=== PATIENT | male | born 1955 | race Caucasian/White ===

== ENCOUNTER 2019-03-10 20:12 | Emergency (ER) | payer OTHER ==
--- NOTE | 2019-03-10 20:15 | ER Report ---
History and Physical Time Seen By MD: 20:14 HPI/ROS CHIEF COMPLAINT: Coughing up blood HISTORY OF PRESENT ILLNESS: 63-year-old male nonsmoker presents ambulatory the ER with illness for 3-4 days. He's had a productive cough which is now pink f rothy sputum. He notes occasional small clots. He said some intermittent fevers. He denies wrist or exposure to tuberculosis. Patient is currently homeless . [facility] was [facility] [place], but he has no money her transportation. REVIEW OF SYSTEMS: Respiratory: As above Cardiovascular: No chest pain, no palpitations. Gastrointestinal: No vomiting, no abdominal pain. Musculoskeletal: No back pain. Allergies: Coded Allergies: No Known Drug Allergies (Unverified , 03/10/19) Home Meds Active Scripts Clotrimazole/Betamethasone Dip (LOTRISONE CREAM) 15 Gm Cream..g., 1 G TP BID PRN for affected areas, #30 Prov:MARCUSMARK Miller DO 03/10/19 Amoxicillin (AMOXICILLIN) 875 Mg Tablet, 1 TAB PO Q12H for infection, #10 TAB Prov:MARK VELAZQUEZ DO 03/10/19 Reported Medications Aspirin (ASPIR 81) 81 Mg Tablet.dr, 81 MG PO QDAY, TAB 03/10/19 Reviewed Nurses Notes: Yes Old Medical Records Reviewed: Yes Constitutional Vital Sign - Last 24 Hours 03/10/19 03/10/19 03/10/19 03/10/19 20:19 20:20 20:30 20:42 Temp 98.0 Pulse 106 99 Resp 18 B/P (MAP) 133/94 (107) 133/94 142/93 (109) Pulse Ox 99 97 O2 Delivery Room Air 03/10/19 03/10/19 03/10/19 03/10/19 21:00 21:12 21:30 21:42 Pulse 97 97 B/P (MAP) 152/96 (114) 148/95 (112) Pulse Ox 87 93 Physical Exam General Appearance: The patient is alert, has no immediate need for airway prote ction and no current signs of toxicity. Vital signs stable, afebrile, pulse ox normal HEENT: Pupils equal and round no injection. Pharynx with mild erythema Respiratory: Chest is non tender, lungs are clear to auscultation. No wheezing or rails Cardiac: regular rate and rhythm Gastrointestinal: Abdomen is soft and non tender, no masses, bowel sounds normal. Musculoskeletal: Neck: Neck is supple and non tender. Extremities have full range of motion and are non tender. Skin: No rashes or lesions. Examination of the buttocks crease reveals gross Tinea cruris DIFFERENTIAL DIAGNOSIS: After history and physical exam differential diagnosis was considered for hemoptysis, TB, pulmonary embolism, acute bronchitis, congestive heart failure, nose bleed, dental bleeding Medical Decision Making Data Points Result Diagram: 03/10/19210303/10/192103 Laboratory Hematology Test 03/10/19 21:04 Red Blood Count 5.92 M/uL (4.00-5.60) Mean Corpuscular Volume 85.6 fL (80.0-96.0) Mean Corpuscular Hemoglobin 29.0 pg (26.0-33.0) Mean Corpuscular Hemoglobin Concent 33.9 g/dL (32.0-36.0) Red Cell Distribution Width 13.8 % (11.5-14.5) Mean Platelet Volume 8.1 fL (7.2-11.1) Neutrophils (%) (Auto) 71.5 % (39.4-72.5) Lymphocytes (%) (Auto) 18.3 % (17.6-49.6) Monocytes (%) (Auto) 7.4 % (4.1-12.4) Eosinophils (%) (Auto) 1.1 % (0.4-6.7) Basophils (%) (Auto) 1.7 % (0.3-1.4) Nucleated RBC Relative Count (auto) 0.0 /100WBC Neutrophils # (Auto) 8.3 K/uL (2.0-7.4) Lymphocytes # (Auto) 2.1 K/uL (1.3-3.6) Monocytes # (Auto) 0.9 K/uL (0.3-1.0) Eosinophils # (Auto) 0.1 K/uL (0.0-0.5) Basophils # (Auto) 0.2 K/uL (0.0-0.1) Nucleated RBC Absolute Count (auto) 0.00 K/uL Prothrombin Time 12.6 seconds (12.0-14.4) Prothromb Time International Ratio 0.95 Activated Partial Thromboplast Time 28 seconds (23-35) Sodium Level 136 mmol/L (137-145) Potassium Level 3.7 mmol/L (3.5-5.0) Chloride Level 102 mmol/L (98-107) Carbon Dioxide Level 24 mmol/L (22-30) Blood Urea Nitrogen 26 mg/dl (9-21) Creatinine 1.00 mg/dl (0.66-1.25) Glomerular Filtration Rate Calc > 60.0 Random Glucose 127 mg/dl (75-110) Calcium Level 9.8 mg/dl (8.4-10.2) Total Bilirubin 0.8 mg/dl (0.2-1.3) Aspartate Amino Transf (AST/SGOT) 86 U/L (0-35) Alanine Aminotransferase (ALT/SGPT) 54 U/L (0-56) Alkaline Phosphatase 85 U/L (0-126) Total Protein 7.7 g/dl (6.3-8.2) Albumin 4.6 g/dl (3.5-5.0) Chemistry Test 03/10/19 21:04 White Blood Count 11.6 k/uL (4.5-11.0) Red Blood Count 5.92 M/uL (4.00-5.60) Hemoglobin 17.2 g/dL (14.0-18.0) Hematocrit 50.7 % (42.0-52.0) Mean Corpuscular Volume 85.6 fL (80.0-96.0) Mean Corpuscular Hemoglobin 29.0 pg (26.0-33.0) Mean Corpuscular Hemoglobin Concent 33.9 g/dL (32.0-36.0) Red Cell Distribution Width 13.8 % (11.5-14.5) Platelet Count 219 K/uL (150-450) Mean Platelet Volume 8.1 fL (7.2-11.1) Neutrophils (%) (Auto) 71.5 % (39.4-72.5) Lymphocytes (%) (Auto) 18.3 % (17.6-49.6) Monocytes (%) (Auto) 7.4 % (4.1-12.4) Eosinophils (%) (Auto) 1.1 % (0.4-6.7) Basophils (%) (Auto) 1.7 % (0.3-1.4) Nucleated RBC Relative Count (auto) 0.0 /100WBC Neutrophils # (Auto) 8.3 K/uL (2.0-7.4) Lymphocytes # (Auto) 2.1 K/uL (1.3-3.6) Monocytes # (Auto) 0.9 K/uL (0.3-1.0) Eosinophils # (Auto) 0.1 K/uL (0.0-0.5) Basophils # (Auto) 0.2 K/uL (0.0-0.1) Nucleated RBC Absolute Count (auto) 0.00 K/uL Prothrombin Time 12.6 seconds (12.0-14.4) Prothromb Time International Ratio 0.95 Activated Partial Thromboplast Time 28 seconds (23-35) Glomerular Filtration Rate Calc > 60.0 Calcium Level 9.8 mg/dl (8.4-10.2) Total Bilirubin 0.8 mg/dl (0.2-1.3) Aspartate Amino Transf (AST/SGOT) 86 U/L (0-35) Alanine Aminotransferase (ALT/SGPT) 54 U/L (0-56) Alkaline Phosphatase 85 U/L (0-126) Total Protein 7.7 g/dl (6.3-8.2) Albumin 4.6 g/dl (3.5-5.0) Coagulation Test 03/10/19 21:04 Prothrombin Time 12.6 seconds Prothromb Time International Ratio 0.95 Activated Partial Thromboplast Time 28 seconds EKG/Imaging Imaging X-ray: Two-view chest x-ray was obtained. I viewed the images myself on the PACS system. My interpretation of the images is: No infiltrate, no effusion, normal mediastinum. The radiologist interpretation had no clinically signific ant variation from this interpretation. ED Course/Re-evaluation ED Course Patient was admitted to an examination room. H&P was done. The differential diagnosis was considered. On clinical examination. Patient has stable vital signs. Chest x-ray is unremarkable, diagnostic blood studies show no quite a lap the low platelet count or elevated white blood cell count. Patient be treated for acute bronchitis with amoxicillin. Patient's given a prescription for Lotrisone cream to treat his Tinea cruris. Patient was transferred to the long term center so that he could get a hotel room for the night through [facility]. Decision to Disposition Date: Mar 10, 2019 Decision to Disposition Time: 21:46 Depart Departure Latest Vital Signs Vital Signs Date Time Temp Pulse Resp B/P (MAP) Pulse Ox O2 Delivery O2 Flow Rate FiO2 03/10/19 21:42 97 93 03/10/19 21:30 148/95 (112) 03/10/19 20:20 98.0 18 Room Air Impression: Primary Impression: Homeless Additional Impressions: Upper respiratory infection Hemoptysis Tinea cruris Condition: Improved Disposition: HOME OR SELF-CARE New Scripts Clotrimazole/Betamethasone Dip (LOTRISONE CREAM) 15 Gm Cream..g. 1 G TP BID PRN for affected areas, #30 Prov: MARK VELAZQUEZ DO 03/10/19 Amoxicillin (AMOXICILLIN) 875 Mg Tablet 1 TAB PO Q12H for infection, #10 TAB Prov: MARK VELAZQUEZ DO 03/10/19 Patient Instructions: Tinea Corporis (ED), Upper Respiratory Infection (ED) Additional Instructions: [facility] [place] Apply antifungal and cortisone cream twice daily to the affected areas Problem Qualifiers Additional Impressions: Upper respiratory infection URI type: unspecified URI Qualified Codes: J06.9 - Acute upper respiratory infection, unspecified MARK VELAZQUEZ DO Mar 10, 2019 20:15
[2019-03-10] MEDS ORDERED: ASPI-1471 PO (20:33)
[2019-03-10 21:22] LABS: PLATELET COUNT, AUTOMATED 219 K/uL (150-450)
[2019-03-10 21:30] VITALS: BP 148/95
--- NOTE | 2019-03-10 21:36 | RADIOLOGY IMAGING REPORT ---
FACILITY: [facility] - [place] PATIENT NAME: Yefri Rudolph : 1955 MR: [id number] V: [id number] EXAM DATE: ORDERING PHYSICIAN: MARK VELAZQUEZ TECHNOLOGIST: Location: [facility] [place] Patient: Yefri Rudolph : 1955 Visit/Account:[id number] Date of Sevice: 03/10/2019 Study: Frontal and lateral views of the chest Indication: Cough Comparison study: None Findings: PA and lateral views of the chest demonstrate no evidence of acute infiltrate. There is no evidence of pleural effusion. There is no evidence of pneumothorax. The mediastinal, cardiac, and diaphragmatic contours are unremarkable. The visualized bony structures are unremarkable. IMPRESSION: Unremarkable chest. Report Dictated By: Jd Harvey at 03/10/2019 9:32 PM Report E-Signed By: Jd Harvey at 03/10/2019 9:33 PM WSN:[id number]
[2019-03-10] MEDS ORDERED: AMOX875T60 PO (21:49)
[2019-03-10] MEDS ORDERED: AMOXICILLIN 875 MG TAB PO ONE (21:50)
[2019-03-10] MEDS ORDERED: BETAMETHASO/CLOTRIMAZOLE 15 GM TP PRN (21:50)
[2019-03-10] MEDS ORDERED: CLOT15CR62 TP (21:54)
[2019-03-10 21:56] LABS: INR 0.95
== END 2019-03-10 22:26 | disposition home or self-care (01) ==
LOC: ER 20:16
DX: J06.9 Acute upper respiratory infection, unspecified (principal); R04.2 Hemoptysis; B35.6 Tinea cruris; Z59.0 Homelessness
CPT/HCPCS: 36415; 71046; 82040; 82247; 82310; 82374; 82435; 82565; 82947; 84075; 84132; 84155; 84295; 84450; 84460; 84520; 85025; 85610; 85730; 99283